=== PATIENT | male | born 1945 | race Caucasian/White ===

== ENCOUNTER 2017-01-14 10:22 | Emergency (ER) | payer MEDICARE, OTHER ==
[~2017-01-14] VITALS: Wt 93.0 kg
[2017-01-14] MEDS ORDERED: NEURONTIN300 MG PO (12:45)
[2017-01-14] MEDS ORDERED: MEDROL DOSEPAK4 MG PO (12:45)
[2017-01-14] MEDS ORDERED: CYCLOBENZAPRINE10 MG PO (12:45)
[2017-01-14] MEDS ORDERED: NAPROSYN500 MG PO (12:45)
== END 2017-01-14 12:51 | disposition home or self-care (01) ==
LOC: ED 10:22
DX: M54.9 Dorsalgia, unspecified (principal); M54.31 Sciatica, right side; M25.551 Pain in right hip

== ENCOUNTER → 2023-10-10 | Outpatient (CLI) | payer MEDICARE ==
[~2023-10-10] MED LIST: CYCLOBENZAPRINE10 MG PO; MEDROL DOSEPAK4 MG PO; NAPROSYN500 MG PO; NEURONTIN300 MG PO
[2023-10-10 08:32] LABS: BASO # 0.1 10*3/uL (0.0-0.1); BASO % 2.1 % (0.0-1.0); EOS # 0.3 10*3/uL (0.0-0.4); EOS % 4.3 % (1.0-4.0); HEMATOCRIT 35.3 % (42.0-52.0); LYMPH # 1.9 10*3/uL (1.3-4.4); LYMPH % 29.4 % (27.0-41.0); MEAN CORPUSCULAR HGB 34.1 pg (27.0-31.0); MEAN CORPUSCULAR HGB CONC 35.1 g/dl (33.0-37.0); MEAN PLATELET VOLUME 9.4 fl (9.6-12.3); MONO # 0.8 10*3/uL (0.1-1.0); MONO % 11.5 % (3.0-9.0); NEUT # 3.4 10*3/uL (2.3-7.9); NEUT % 51.8 % (47.0-73.0); PLATELET COUNT AUTOMATED 216 10*3/uL (130-400); RED BLOOD COUNT 3.64 10*6/uL (4.50-5.90); RED CELL DISTRI WIDTH 15.4 % (0-14.5); WHITE BLOOD COUNT 6.5 10*3/uL (4.8-10.8)
[2023-10-10 09:00] LABS: VITAMIN D, 25-HYDROXY 37.5 ng/mL (30-100)
[2023-10-10 09:02] LABS: ALKALINE PHOSPHATASE 56 U/L (46-116); BUN 7 mg/dl (9-23); CHLORIDE 107 mmol/L (98-107); CHOLESTEROL 167 mg/dL (<200); LDL CHOLESTEROL 81 mg/dL (9-159); POTASSIUM 4.8 mmol/L (3.4-5.1); TOTAL PROTEIN 6.9 gm/dL (6.0-8.0); TRIGLYCERIDES 181 mg/dl (<150)
[2023-10-10 09:03] LABS: SGPT/ALT < 7 U/L (5-49)
== END | disposition home or self-care (01) ==
LOC: LAB 07:48
PROVIDERS: ATTEND Nurse Practitioner Primary Care
DX: M54.16 Radiculopathy, lumbar region (principal); G62.9 Polyneuropathy, unspecified